=== PATIENT | male | born 1980 | race American Indian/Alaskan Native ===

== ENCOUNTER 2018-07-01 12:28 | Emergency (ER) | payer SELFPAY ==
[2018-07-01 12:34] VITALS: BP 141/93
--- NOTE | 2018-07-01 12:37 | Emergency Department Report ---
ED ENT HPI - General Chief complaint: Earache Stated complaint: LT EAR PAIN/LT SIDE PAIN Time Seen by Provider: 07/01/18 12:32 Source: patient Mode of arrival: Ambulatory Limitations: No Limitations - History of Present Illness Initial comments: This is a 37-year-old male that presents with left ear pain. Patient stated has some drainage as well. Denies any mastoid tenderness. Denies any fever, chills, headache, nausea, vomiting, chest pain or shortness of breathe. Denies any allergies. MD complaint: ear pain Location: L ear Severity: mild Severity scale (0 -10): 8 Quality: aching Consistency: constant Improves with: none Worsens with: none Associated Symptoms: denies: fever, cough, gum swelling, toothache, pain with swallowing, sore throat, tinnitus, hearing loss, discharge from ear, rhinorrhea - Related Data Previous Rx's Medication Instructions Recorded Last Taken Type Amoxicillin [Amoxicillin TAB] 875 mg PO BID #20 tablet 07/01/18 Unknown Rx Ciprofloxacin 0.2%(Nf) 4 drops TID #1 droperette 07/01/18 Unknown Rx [Ciprofloxacin Otic 0.2%(Nf)] Allergies Allergy/AdvReac Type Severity Reaction Status Date / Time No Known Allergies Allergy Unverified 07/01/18 12:31 ED Dental HPI - General Chief complaint: Earache Stated complaint: LT EAR PAIN/LT SIDE PAIN Time Seen by Provider: 07/01/18 12:32 Source: patient Mode of arrival: Ambulatory Limitations: No Limitations - Related Data Previous Rx's Medication Instructions Recorded Last Taken Type Amoxicillin [Amoxicillin TAB] 875 mg PO BID #20 tablet 07/01/18 Unknown Rx Ciprofloxacin 0.2%(Nf) 4 drops TID #1 droperette 07/01/18 Unknown Rx [Ciprofloxacin Otic 0.2%(Nf)] Allergies Allergy/AdvReac Type Severity Reaction Status Date / Time No Known Allergies Allergy Unverified 07/01/18 12:31 ED Review of Systems ROS: Stated complaint: LT EAR PAIN/LT SIDE PAIN Other details as noted in HPI Constitutional: denies: chills, fever Eyes: denies: eye pain, eye discharge, vision change ENT: ear pain. denies: throat pain Respiratory: denies: cough, shortness of breath, wheezing Cardiovascular: denies: chest pain, palpitations Endocrine: no symptoms reported Gastrointestinal: denies: abdominal pain, nausea, diarrhea Genitourinary: denies: urgency, dysuria Musculoskeletal: denies: back pain, joint swelling, arthralgia Skin: denies: rash, lesions Neurological: denies: headache, weakness, paresthesias Psychiatric: denies: anxiety, depression Hematological/Lymphatic: denies: easy bleeding, easy bruising ED Past Medical Hx - Medications Home Medications: Home Medications Medication Instructions Recorded Confirmed Last Taken Type Amoxicillin [Amoxicillin TAB] 875 mg PO BID #20 tablet 07/01/18 Unknown Rx Ciprofloxacin 0.2%(Nf) 4 drops TID #1 droperette 07/01/18 Unknown Rx [Ciprofloxacin Otic 0.2%(Nf)] ED Physical Exam - General Limitations: No Limitations General appearance: alert, in no apparent distress - Head Head exam: Present: atraumatic, normocephalic - Expanded ENT Exam Expanded Ear exam: Present: normal external inspection TM/Canal exam: Erythema: Left TM, Bulging: Left TM, Canal Discharge: Left TM Mouth exam: Present: normal external inspection. Absent: drooling, trismus, muffled voice Teeth exam: Present: normal inspection Throat exam: Positive: normal inspection. Negative: tonsillar erythema, tonsillomegaly - Neck Neck exam: Present: normal inspection, full ROM. Absent: tenderness, meningismus, lymphadenopathy - Extremities Exam Extremities exam: Present: normal inspection, full ROM - Back Exam Back exam: Present: normal inspection, full ROM - Neurological Exam Neurological exam: Present: alert, oriented X3 - Psychiatric Psychiatric exam: Present: normal affect, normal mood - Skin Skin exam: Present: warm, dry, intact, normal color. Absent: rash ED Course Vital Signs 07/01/18 12:33 Temperature 97.7 F Pulse Rate 83 Respiratory 18 Rate Blood Pressure 141/93 [Right] O2 Sat by Pulse 99 Oximetry - Reevaluation(s) Reevaluation #1: 07/01/18 12:35 Patient is speaking in full sentences with no signs of distress noted. Critical care attestation.: If time is entered above; I have spent that time in minutes in the direct care of this critically ill patient, excluding procedure time. ED Disposition Clinical Impression: Left otitis media Qualifiers: Otitis media type: unspecified Qualified Code(s): H66.92 - Otitis media, unspecified, left ear Left otitis externa Qualifiers: Otitis externa type: unspecified type Chronicity: acute Qualified Code(s): H60.502 - Unspecified acute noninfective otitis externa, left ear Disposition: DC-01 TO HOME OR SELFCARE Is pt being admited?: No Does the pt Need Aspirin: No Condition: Stable Instructions: Otitis Media (ED), Otitis Externa (ED) Additional Instructions: Follow-up with a primary care doctor in 3-5 days or if symptoms worsen and continue return to the ED as soon as possible. Prescriptions: Amoxicillin [Amoxicillin TAB] 875 mg PO BID #20 tablet Ciprofloxacin 0.2%(Nf) [Ciprofloxacin Otic 0.2%(Nf)] 4 drops TID #1 droperette Referrals: PRIMARY CARE, [Referring] - 3-5 Days ELGIN SEVILLA MD [Staff Physician] - 3-5 Days [facility] [Outside] - 3-5 Days [facility] [Outside] - 3-5 Days Forms: Work/School Release Form(ED)
== END 2018-07-01 12:51 | disposition home or self-care (01) ==
LOC: ED 12:28
DX: H66.92 Otitis media, unspecified, left ear (principal); H60.502 Unspecified acute noninfective otitis externa, left ear
CPT/HCPCS: 99282